=== PATIENT | female | born 1975 | race Caucasian/White ===

== ENCOUNTER 2017-08-01 11:58 | Emergency (ER) | payer OTHER ==
[~2017-08-01] VITALS: Ht 157.5 cm; Wt 64.8 kg
[~2017-08-01 11:58] MED LIST: AUGMENTIN875 MG PO; BUSPAR10 MG PO; LEXAPRO20 MG PO; RITALIN20 MG PO; VISTARIL
[2017-08-01 14:06] LABS: HEMATOCRIT 39.3 % (36.0-46.0); HEMOGLOBIN 13.3 G/DL (11.9-15.5); MCH 29.8 PG (29.0-34.0); MCHC 33.8 G/DL (30.0-36.0); MCV 87.9 FL (83-99); RBC DIS.WIDTH-CV 14.7 % (11.8-14.6); RBC DIS.WIDTH-SD 47.7 % (39-53); RED BLOOD COUNT 4.47 M/uL (3.80-5.20); WHITE BLOOD COUNT 9.8 K/uL (4.1-10.2)
[2017-08-01 14:18] LABS: CHLORIDE 104 mEq/L (99-109); POTASSIUM 4.8 mEq/L (3.7-5.4); SODIUM 139 mEq/L (136-147)
[2017-08-01 14:21] LABS: GLUCOSE 103 mg/dL (70-99)
[2017-08-01 14:23] LABS: CREATININE 0.8 mg/dL (0.6-1.3); GFR ESTIMATE (CALCULATED) > 59 mL/min/
[2017-08-01 14:24] LABS: UREA NITROGEN (BUN) 10 mg/dL (9-23)
[2017-08-01 15:04] LABS: PLAT.SUFFICIENCY ADEQUATE; PLATELET COUNT 339 K/uL (156-360)
[2017-08-01 15:11] LABS: ERTH.SED.RATE 20 MM/HR (0-20)
[2017-08-01 16:13] LABS: QUANTITATIVE HCG < 4.0 MIU/ML
[2017-08-01 16:23] VITALS: BP 111/78
[2017-08-02 11:37] LABS: HEMOGLOBIN A1c (GLYCOHEMOGLOB) 5.4 % (Below 5.7)
== END 2017-08-01 17:41 | disposition home or self-care (01) ==
LOC: EME 11:58
PROVIDERS: Physician Assistant Medical
DX: G44.009 Cluster headache syndrome, unspecified, not intractable (principal); K21.9 Gastro-esophageal reflux disease without esophagitis; F41.9 Anxiety disorder, unspecified; F32.9 Major depressive disorder, single episode, unspecified; F90.0 Attention-deficit hyperactivity disorder, predominantly inattentive type; Z87.891 Personal history of nicotine dependence; Z90.49 Acquired absence of other specified parts of digestive tract
CPT/HCPCS: 70450; 80048; 83036; 84702; 85027; 85651; 99281; 99283